=== PATIENT | female | born 1960 | race Caucasian/White ===

== ENCOUNTER 2023-03-12 19:36 | Emergency (ER) | payer BC ==
[~2023-03-12] VITALS: Ht 170.2 cm; Wt 95.0 kg
[2023-03-12 19:42] VITALS: BP 179/91; TEMP 98.6; O2SAT 98
[2023-03-12] MEDS ORDERED: LIDOCAINE 2% MDV 20ML VIAL SC ONE (22:35)
[2023-03-12] MEDS ORDERED: NEOSPORIN OINT 0.9 GM PKT TOP ONE (23:15)
== END 2023-03-12 23:35 | disposition home or self-care (01) ==
LOC: EDBD 19:36 → M ED 19:36
DX: S01.81XA Laceration without foreign body of other part of head, initial encounter (principal); W01.10XA Fall on same level from slipping, tripping and stumbling with subsequent striking against unspecified object, initial encounter; Y92.89 Other specified places as the place of occurrence of the external cause; Y93.89 Activity, other specified; Y99.8 Other external cause status; I10 Essential (primary) hypertension